=== PATIENT | female | born 1960 | race Caucasian/White ===

== ENCOUNTER → 2017-09-16 | Outpatient (CLI) | payer OTHER ==
--- NOTE | 2017-09-16 08:58 | BD ---
EXAMINATION TYPE: MG DEXA axial skeleton. DATE OF EXAM: 09/16/2017 COMPARISON: 09/02/2013 CLINICAL HISTORY: 56-year-old female postmenopausal symptoms Height: 64 IN Weight: 148 LBS FRAX RISK QUESTIONS: Alcohol (3 or more units per day): NO Family History (Parent hip fracture): NO Glucocorticoids (More than 3mos): NO (Ex: prednisone, prednisolone, methylprednisolone, dexamethasone, and hydrocortisone). History of Fracture in Adulthood: NO Secondary Osteoporosis: 1. Type 1 Diabetes: NO 2. Hyperthyroidism: NO 3. Menopause before 45: NO 4. Malnutrition: NO 5. Chronic liver disease: NO Rheumatoid Arthritis: NO Current Tobacco Use: NO RISK FACTORS HISTORY OF: Postmenopausal woman: AGE 46 MEDICATIONS: Additional Medications: CALCIUM, VIT D, WOMEN'S ONE A DAY VIT, RED YEAST RICE, COQ10, VIT C, EXAM MEASUREMENTS: Bone mineral densitometry was performed using the [employer] System. Bone mineral density as measured about the Lumbar spine is: ----- L1-L4(G/cm2): 1.111 T Score Values are as follows: ----- L2: -0.5 ----- L3: -0.4 ----- L4: -0.6 ----- L1-L4: -0.6 Bone mineral density has: Decreased -4.5% since study of: 09/02/2013 Bone mineral density about the R hip (g/cm2): 0.834 Bone mineral density about the L hip (g/cm2): 0.967 T Score values are as follows: -----R Neck: -1.5 -----L Neck: -0.5 -----R Total: -0.9 -----L Total: -0.3 Bone mineral density has: Decreased -2.2% since study of: 09/02/2013 IMPRESSION: Osteopenia (T Score between -2.5 and -1 as noted by T score values in the right hip). There is slightly increased risk of fracture and the patient may be considered for treatment. Re-Scre en 2-5 years. NOTE: T-SCORE=SD OF THE YOUNG ADULT MEAN.
--- NOTE | 2017-09-17 07:22 | MM ---
Reason for exam: screening (asymptomatic). Last mammogram was performed 1 year and 1 month ago. History: Patient is postmenopausal and has history of endometrial cancer at age 30. Benign cyst aspiration of the right breast, 2002. Benign cyst aspiration of the left breast, 1999. Physical Findings: A clinical breast exam by your physician is recommended on an annual basis and results should be correlated with mammographic findings. MG 3D Screening Mammo W/Cad Bilateral CC and MLO view(s) were taken. Prior study comparison: August 08, 2016, bilateral MG 3d screening mammo w/cad. August 18, 2015, right breast MG 3d diag mammo w/cad RT. The breast tissue is heterogeneously dense. This may lower the sensitivity of mammography. There is chronic nodularity in the left breast. No significant changes when compared with prior studies. ASSESSMENT: Benign, BI-RAD 2 RECOMMENDATION: Routine screening mammogram of both breasts in 1 year.
== END | disposition home or self-care (01) ==
LOC: RADMAMWWP 07:56
PROVIDERS: ATTEND Obstetrics & Gynecology
DX: Z12.31 Encounter for screening mammogram for malignant neoplasm of breast (principal); M85.88 Other specified disorders of bone density and structure, other site; N95.1 Menopausal and female climacteric states
CPT/HCPCS: 77080; 77063; G0202

== ENCOUNTER → 2019-02-04 | Outpatient (CLI) | payer OTHER ==
--- NOTE | 2019-02-06 10:38 | MM ---
Reason for exam: screening (asymptomatic). Last mammogram was performed 1 year and 5 months ago. History: Patient is postmenopausal and has history of other cancer at age 30. Benign cyst aspiration of the right breast, 2002. Benign cyst aspiration of the left breast, 1999. Physical Findings: A clinical breast exam by your physician is recommended on an annual basis and results should be correlated with mammographic findings. MG 3D Screening Mammo W/Cad Bilateral CC and MLO view(s) were taken. Prior study comparison: September 16, 2017, bilateral MG 3d screening mammo w/cad. August 08, 2016, bilateral MG 3d screening mammo w/cad. The breast tissue is heterogeneously dense. This may lower the sensitivity of mammography. There is chronic nodularity bilaterally, inferiorly in the breasts. No significant changes when compared with prior studies. ASSESSMENT: Benign, BI-RAD 2 RECOMMENDATION: Routine screening mammogram of both breasts in 1 year.
== END ==
LOC: RADMAMWWP 07:21
PROVIDERS: ATTEND Obstetrics & Gynecology
DX: Z12.31 Encounter for screening mammogram for malignant neoplasm of breast (principal)
CPT/HCPCS: 77063; 77067

== ENCOUNTER → 2021-08-01 | Outpatient (CLI) | payer BC, OTHER ==
--- NOTE | 2021-08-02 09:44 | MM ---
Reason for exam: screening (asymptomatic). Last mammogram was performed 2 years and 6 months ago. History: Patient is postmenopausal and has history of other cancer at age 30. Benign cyst aspiration of the right breast, 2002. Benign cyst aspiration of the left breast, 1999. Physical Findings: A clinical breast exam by your physician is recommended on an annual basis and results should be correlated with mammographic findings. MG 3D Screening Mammo W/Cad Bilateral CC and MLO view(s) were taken. Prior study comparison: February 04, 2019, bilateral MG 3d screening mammo w/cad. September 16, 2017, bilateral MG 3d screening mammo w/cad. The breast tissue is heterogeneously dense. This may lower the sensitivity of mammography. There is chronic nodularity in the left breast. There is no dominant lesion. No significant changes when compared with prior studies. ASSESSMENT: Benign, BI-RAD 2 RECOMMENDATION: Routine screening mammogram of both breasts in 1 year.
== END | disposition home or self-care (01) ==
LOC: RADMAMWWP 08:54
PROVIDERS: ATTEND Obstetrics & Gynecology
DX: Z12.31 Encounter for screening mammogram for malignant neoplasm of breast (principal); Z78.0 Asymptomatic menopausal state
CPT/HCPCS: 77063; 77067

== ENCOUNTER → 2022-01-23 | Outpatient (CLI) | payer BC ==
--- NOTE | 2022-01-23 21:08 | BD ---
EXAMINATION TYPE: Axial Bone Density DATE OF EXAM: 01/23/2022 COMPARISON: 09.16.2017 CLINICAL HISTORY: 61 years year old Female. ICD-10 CODE: Z78.0 POST MENOPAUSAL WITHOUT HRT, M85.80 O STEOPENIA Height: 63.4 Weight: 152 FRAX RISK QUESTIONS: 3. Menopause before 45: AT 43 RISK FACTORS HISTORY OF: Postmenopausal woman: YES, AT ABOUT 43 YRS OLD Hyperparathyroidism: NO Adrenal Insufficiency: NO MEDICATIONS: Additional Medications: OTC CHOLESTEROL MED, VIT D AND CALCIUM Additional History: NOTHING TO NOTE HERE EXAM MEASUREMENTS: Bone mineral densitometry was performed using the [employer] System. Bone mineral density as measured about the Lumbar spine is: ----- L1-L4(G/cm2): 1.119 T Score Values are as follows: ----- L1: -0.6 ----- L2: -0.3 ----- L3: -0.3 ----- L4: -0.9 ----- L1-L4: -0.5 Bone mineral density has: Decreased -0.1% since study of: 09.16.2017 Bone mineral density about the R hip (g/cm2): 0.892 Bone mineral density about the L hip (g/cm2): 0.935 T Score values are as follows: -----R Neck: -1.3 -----L Neck: -0.8 -----R Total: -0.9 -----L Total: -0.6 Bone mineral density has: Decreased -1.9% since study of: 09.16.2017 FRAX%s: The graph provided illustrates a 8.2% chance for a major osteoporotic fx and a 0.7% chance fo r the hips probability for fx in 10 years time. IMPRESSION: Osteopenia (T Score between -2.5 and -1) femoral neck level right hip redemonstrated. There is slightly increased risk of fracture and the patient may be considered for treatment. Re-Screen 2-5 years. NOTE: T-SCORE=SD OF THE YOUNG ADULT MEAN.
== END | disposition home or self-care (01) ==
LOC: RADBDWWP 07:41
PROVIDERS: ATTEND Obstetrics & Gynecology
DX: M85.851 Other specified disorders of bone density and structure, right thigh (principal); Z78.0 Asymptomatic menopausal state
CPT/HCPCS: 77080

== ENCOUNTER → 2022-08-29 | Outpatient (CLI) | payer BC ==
--- NOTE | 2022-08-29 12:03 | MM ---
Reason for Exam: Clinical finding. Last mammogram was performed 1 year(s) and 1 month(s) ago. Patient History: Menarche at age 11. First Full-Term at age 17. Postmenopausal. Other cancer, age 30. 2002, Benign Cyst Aspiration on the right side. 1999, Benign Cyst Aspiration on the left side. Risk Values: Venita 5 year model risk: 1.1%. NCI Lifetime model risk: 4.9%. Tissue Density: The breast tissue is heterogeneously dense. This may lower the sensitivity of mammography. Findings: Analyzed By CAD. There are suspicious grouped, fine calcification in the anterior upper outer quadrant of right breast. No mammographic abnormalilty at palpable, palpable resolved per patient. This finding is changed when compared with previous exams. Overall Assessment: Incomplete: need additional imaging evaluation, BI-RAD 0 Management: Diagnostic Breast Ultrasound of the right breast. A clinical breast exam by your physician is recommended on an annual basis and results should be correlated with mammographic findings. This exam should not preclude additional follow-up of suspicious palpable abnormalities. Results were given to the patient verbally at the time of exam. Electronically signed and approved by: Milton Cortez D.O. Radiologis
--- NOTE | 2022-08-29 12:08 | USB ---
Reason for Exam: Clinical finding. Indicated Problems: Palpable abnormality of the right side. Patient History: Menarche at age 11. First Full-Term at age 17. Postmenopausal. Other cancer, age 30. 2002, Benign Cyst Aspiration on the right side. 1999, Benign Cyst Aspiration on the left side. Risk Values: Venita 5 year model risk: 1.1%. NCI Lifetime model risk: 4.9%. Prior Study Comparison: 09/16/2017 Bilateral Screening Mammogram, [facility]. 02/04/2019 Bilateral Screening Mammogram, [facility]. 08/01/2021 Bilateral Screening Mammogram, [facility]. Findings: The upper outer quadrant of the right breast, the axilla of the right breast and the retroareolar of the right breast were scanned. Right limited breast ultrasound including focal area of concern, retroareolar and axilla demonstrates a 1.1 x 0.8 x 1.1cm oval, mixed lesion at 10 o'clock, 1cm from the nipple. Overall Assessment: Suspicious, BI-RAD 4 Management: Stereotactic Core Biopsy of the right breast. Coordinate with stereotactic core biopsy, consider ultrasound core biopsy after versus 3 months follow up. A clinical breast exam by your physician is recommended on an annual basis and results should be correlated with mammographic findings. This exam should not preclude additional follow-up of suspicious palpable abnormalities. Results were given to the patient verbally at the time of exam. Electronically signed and approved by: Milton Cortez D.O. Radiologis
== END | disposition home or self-care (01) ==
LOC: RADMAMWWP 07:00
PROVIDERS: ATTEND Obstetrics & Gynecology
DX: R92.8 Other abnormal and inconclusive findings on diagnostic imaging of breast (principal); Z78.0 Asymptomatic menopausal state
CPT/HCPCS: 77062; 77066

== ENCOUNTER → 2022-09-17 | Day surgery (SDC) | payer BC ==
[2022-09-17 07:28] VITALS: RESP 16
[2022-09-17 08:29] LABS: Mean Platelet Volume 11.8
[2022-09-17 09:22] LABS: Platelet Count 85 k/uL (150-450)
[2022-09-17 09:40] VITALS: BP 169/88; PULSE 72; TEMP 98.1
--- NOTE | 2022-09-19 11:58 | MM ---
Risk Values: Venita 5 year model risk: 1.1%. NCI Lifetime model risk: 4.9%. Prior Study Comparison: 02/04/2019 Bilateral Screening Mammogram, [facility]. 08/01/2021 Bilateral Screening Mammogram, [facility]. 08/29/2022 Bilateral MG 3D diag mammo w/cad DRE, [facility]. Pathology Description: Marker Left Behind. Specimen Radiograph. Approach: CC FA Needle Type: Eviva Cores: 5 Skin Nicks: 1 Gauge: 9 The procedure of stereotactic guided core biopsy was explained to the patient. Benefits, alternatives, and risks were discussed. An informed consent was then obtained. A superior approach was chosen as calcifications are best seen on CC images. I performed the localization and then performed the remainder of the procedure. Overlying skin is cleansed with Betadine. Lidocaine was used as anesthetic into the skin. Lidocaine with epinephrine was used as anesthetic during sampling. A vacuum assisted biopsy gun was used to obtain multiple core samples. The patient tolerated the procedure well without any immediate complication. The patient was kept in the radiology department for short stay after the procedure and then taken to ultrasound for ultrasound feature. Targeted calcifications are identified in specimen mammogram. The ultrasound guided cyst aspiration and/or core biopsy procedure was explained to the patient. The risks, benefits, alternatives were discussed. An informed consent was then obtained. The patient was placed in supine positioning for imaging and for the procedure. Preprocedure ultrasound redemonstrates nonsimple thin-walled cyst o'clock position 1 cm distance from nipple right breast, biopsy clip from recent stereotactic procedure is felt in close proximity to this. The overlying skin was prepped with betadine and sterilely draped in usual sterile fashion. 7 ml 1% lidocaine was used as anesthetic into the skin and deeper breast tissue up to area of concern in the right 10 o'clock breast, one cm from nipple. Under ultrasound guidance, an 18-gauge spinal needle was advanced into the cyst and aspiration yielded less than 1 mL of debris cloudy fluid. Fluid was discarded due to nonbloody component. No clip was placed. Post biopsy mammogram shows the clip from stereotactic biopsy to appear in satisfactory position relative to the targeted area of concern on the preprocedure images. IMPRESSION: SUCCESSFUL, UNCOMPLICATED STEREOTACTIC GUIDED CORE BIOPSY AND ULTRASOUND-GUIDED ASPIRATION OF AREAS OF CONCERN IN THE RIGHT BREAST, FULL PATHOLOGY RESULTS TO FOLLOW. Intermediate index of suspicion for calcifications noted at time of procedure. Pathology Results: Result: Benign, Fibrocystic change. RIGHT BREAST, STEREOTACTIC NEEDLE CORE BIOPSY: Fibrocystic changes including columnar cell change with calcifications and fibrosis. Pathology Description: Location: 10 o'clock, upper inner quadrant, middle. No clip, no fluid sent to lab per Dr Johnson. Overall Assessment: Benign Management: Diagnostic Mammogram of the right breast. Electronically signed and approved by: Ifeanyi Johnson M.D.
== END | disposition home or self-care (01) ==
LOC: RADMAMWWP 07:14
PROVIDERS: ATTEND Surgery
DX: N60.31 Fibrosclerosis of right breast (principal); R92.1 Mammographic calcification found on diagnostic imaging of breast; D69.3 Immune thrombocytopenic purpura
CPT/HCPCS: 88305; 85049; 19081; 76942; 19000; A4648; J2001

== ENCOUNTER → 2023-11-27 | Outpatient (CLI) | payer MEDICARE ==
--- NOTE | 2023-12-04 11:01 | MM ---
Reason for Exam: Additional evaluation requested from prior study. Last mammogram was performed 1 year(s) and 3 month(s) ago. Indicated Problems: Nipple abnormality of the left side for 6 Month(s). Patient History: Menarche at age 11. First Full-Term at age 17. Postmenopausal. Other cancer, age 30. 09/17/2022, Benign MG stereo VAD BX RT on the right side. 09/17/2022, US breast aspiration single RT on the Right side. 2002, Benign Cyst Aspiration on the right side. 1999, Benign Cyst Aspiration on the left side. Risk Values: Venita 5 year model risk: 1.4%. NCI Lifetime model risk: 5.6%. Prior Study Comparison: 02/14/2012 Bilateral Screening Mammogram, [facility]. 09/02/2013 Bilateral Screening Mammogram, [facility]. 09/07/2013 Left Diagnostic Mammogram, [facility]. 09/07/2013 Left Diagnostic Ultrasound, [facility]. 01/17/2015 Bilateral Screening Mammogram, [facility]. 01/24/2015 Right Diagnostic Mammogram, [facility]. 01/24/2015 Right Diagnostic Ultrasound, [facility]. 08/18/2015 Right Diagnostic Mammogram, [facility]. 08/18/2015 Right Diagnostic Ultrasound, [facility]. 08/08/2016 Bilateral Screening Mammogram, [facility]. 09/16/2017 Bilateral Screening Mammogram, [facility]. 02/04/2019 Bilateral Screening Mammogram, [facility]. 08/01/2021 Bilateral Screening Mammogram, [facility]. 08/29/2022 Bilateral MG 3D diag mammo w/cad RDE, [facility]. 08/29/2022 Right US breast limited RT, [facility]. Tissue Density: The breast tissue is heterogeneously dense. This may lower the sensitivity of mammography. Findings: Analyzed By CAD. Microclip right breast from prior biopsy. There is underlying chronic nodularity on both sides which remains unchanged. No significant change from prior exams. Overall Assessment: Benign, BI-RAD 2 Management: Screening Mammogram of both breasts in 1 year. Results were given to the patient verbally at the time of exam. Patient should continue monthly self-breast exams. A clinical breast exam by your physician is recommended on an annual basis. This exam should not preclude additional follow-up of suspicious palpable abnormalities. Note on Venita scores and lifetime risk: 1. A Venita score greater than 3% is considered moderate risk. If this is the case, consider specialist referral to assess eligibility for a risk reducing agent. 2. If overall lifetime risk for the development of breast cancer is 20% or higher, the patient may qualify for future screening with alternating mammogram and breast MRI. Electronically signed and approved by: Rowdy Dunbar M.D. Radiologist
== END | disposition home or self-care (01) ==
LOC: RADMAMWWP 10:23
PROVIDERS: ATTEND Obstetrics & Gynecology
DX: R92.333 Mammographic heterogeneous density, bilateral breasts (principal); Z78.0 Asymptomatic menopausal state
CPT/HCPCS: 77062; 77066